=== PATIENT | male | born 1955 | race Caucasian/White ===

== ENCOUNTER 2024-01-17 09:07 | Day surgery (SDC) | payer MEDICARE, OTHER ==
[~2024-01-17] VITALS: Ht 182.9 cm; Wt 98.2 kg
[~2024-01-17 09:07] MED LIST: LR 1,000 ML IV SCH; Ondansetron 4 MG/2 ML VIAL IV PRN
[2024-01-17] MEDS ORDERED: AMOXICILLIN 50500 MG PO (10:03)
[2024-01-17] MEDS ORDERED: LANOXIN 0.120.125 MG PO (10:04)
[2024-01-17] MEDS ORDERED: TOPROL XL100 MG PO (10:05)
[2024-01-17] MEDS ORDERED: PLAVIX 75MG TAB75 MG PO (10:05)
[2024-01-17] MEDS ORDERED: ENTRESTO 97 MG1 EACH PO (10:06)
[2024-01-17] MEDS ORDERED: INSPRA25 MG PO (10:07)
[2024-01-17] MEDS ORDERED: LIPITOR 80MG80 MG PO (10:07)
[2024-01-17] MEDS ORDERED: ASPIRIN 81M81 MG/TA2 PO (10:08)
[2024-01-17] MEDS ORDERED: ZETIA 10MG TAB10 MG PO (10:09)
[2024-01-17] MEDS ORDERED: PROTONIX 40MG T40 MG PO (10:09)
[2024-01-17] MEDS ORDERED: PREDNISONE 5MG5 MG PO (10:10)
--- NOTE | 2024-01-17 10:14 | NUR ---
Pt arrived with , bowels are WNL for the procedure, VSS; reveiwed and signed consents, no questions/concerns; reviewed meds/allergies/pharm/history. To place IV and await procedure.
[2024-01-17 10:16] VITALS: BP 100/62; PULSE 55; TEMP 97.4
[2024-01-17] MEDS ORDERED: Lidocaine PF 2% (20 MG/ML) 5 ML VIAL ONE (10:50)
[2024-01-17 11:15] VITALS: BP 104/59; PULSE 67
[2024-01-17 11:30] VITALS: BP 95/70; PULSE 68
--- NOTE | 2024-01-17 13:45 | NUR ---
1115- PT BACK FROM PROCEDURE TO [facility] VIA CART. PT AMBULATED FROM CART TO CHAIR WITH ASSISTANCE. MONITORS ON AND ALARMS SET. REPORT RECIEVED FROM VALENTIN BENITEZ. PT ALERT AND ORIENTED. VSS. PT REQUESTING FOOD AND DRINK. NO OTHER NEEDS AT THIS TIME. CALL LIGHT WITHIN REACH. 1130- PT TAKING FOOD AND DRINK WELL. NO COMPLICATIONS NOTED. 1140- DISCHARGE PAPERWORK GIVEN TO PT. ALL QUESTIONS ASKED. 1150- PT TRANSFERRED OUT OF THE HOSPITAL VIA WHEELCHAIR TO OWN PRIVATE VEHICLE DRIVEN BY .
== END 2024-01-17 11:50 | disposition home or self-care (01) ==
LOC: SDCO 09:07
DX: K57.31 Diverticulosis of large intestine without perforation or abscess with bleeding (principal); K64.2 Third degree hemorrhoids; Z95.810 Presence of automatic (implantable) cardiac defibrillator; Z79.01 Long term (current) use of anticoagulants; Z95.5 Presence of coronary angioplasty implant and graft; Z95.1 Presence of aortocoronary bypass graft; Z79.02 Long term (current) use of antithrombotics/antiplatelets; Z79.82 Long term (current) use of aspirin
CPT/HCPCS: J2704; J7120